=== PATIENT | female | born 1990 | race Caucasian/White ===

== ENCOUNTER 2022-10-05 13:44 | Inpatient (IN) | payer OTHER ==
[~2022-10-05] VITALS: Ht 162.6 cm; Wt 74.1 kg
[2022-10-06] VITALS (17 sets, daily range): BP systolic 91–135; BP diastolic 48–78; PULSE 63–88; TEMP 97.3–98.2
--- NOTE | 2022-10-06 06:05 | NUR ---
In waiting room. States "I'm here for a C/S" Ambulatory to room 221.
[2022-10-06] MEDS ORDERED: PRENATAL (06:42)
[2022-10-06] MEDS ORDERED: EZFE 200200 MG PO (06:43)
[2022-10-06] MEDS ORDERED: ZYRTEC 10MG10 MG PO (06:43)
[2022-10-06 07:49] LABS: BASO % 0.3 % (0.0-2.0); EOS # 0.1 K/mm3 (0.0-0.7); EOS % 2.4 % (0.0-4.0); GRAN # 2.2 K/mm3 (1.4-6.5); GRAN % 73.6 % (42.2-75.2); LYMPH # 0.5 K/mm3 (1.2-3.4); LYMPH % 17.3 % (20.0-51.0); MEAN CELL VOLUME 89 fl (80.0-100.0); MEAN CORPUSCULAR HGB CONC 36 g/dl (33.0-37.0); MEAN PLATELET VOLUME 11.5 fl (7.4-10.4); MONO # 0.2 K/mm3 (0.1-0.6); MONO % 5.4 % (1.7-9.3); PLATELET COUNT 52 K/mm3 (130-400); RED BLOOD COUNT 7.03 M/mm3 (4.10-5.30); REDCELL DISTRIBUTION WIDTH-CV 14.1 % (11.5-14.5)
[2022-10-06 07:51] LABS: HEMATOCRIT 62.8 % (37.0-47.0); MEAN CORPUSCULAR HEMOGLOBIN 32 pg (27-31)
[2022-10-06 07:54] LABS: HEMOGLOBIN 22.4 g/dl (12.5-16.0)
[2022-10-06 12:05] LABS: BASO % 0.2 % (0.0-2.0); EOS % 0.1 % (0.0-4.0); GRAN # 12.8 K/mm3 (1.4-6.5); GRAN % 86.3 % (42.2-75.2); LYMPH # 1.3 K/mm3 (1.2-3.4); LYMPH % 9.1 % (20.0-51.0); MEAN CELL VOLUME 90 fl (80.0-100.0); MEAN CORPUSCULAR HGB CONC 36 g/dl (33.0-37.0); MEAN PLATELET VOLUME 11.7 fl (7.4-10.4); MONO # 0.6 K/mm3 (0.1-0.6); MONO % 3.8 % (1.7-9.3); REDCELL DISTRIBUTION WIDTH-CV 13.2 % (11.5-14.5)
[2022-10-06 12:07] LABS: HEMATOCRIT 34.3 % (37.0-47.0); MEAN CORPUSCULAR HEMOGLOBIN 32 pg (27-31)
[2022-10-06 12:17] LABS: HEMOGLOBIN 12.2 g/dl (12.5-16.0)
[2022-10-06 12:18] LABS: PLATELET COUNT 160 K/mm3 (130-400)
--- NOTE | 2022-10-06 12:30 | NUR ---
1216- LAB NOTIFIED RN OF CHANGE IN LAB RESULTS 1222- NOTIFIED BY RN OF LAB RESULTS, SEE PHYSICIAN NOTIFICATION. 1229- RN CALLS LAB TO TRY TO CONTACT LUTE PACKER OR APPLIER, LUTE PACKER OR APPLIER NOT IN OFFICE TODAY. 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
--- NOTE | 2022-10-06 15:50 | NUR ---
PATIENT ISNO LONGER FEELING LIKE HER LEGS ARE NUMB, RN AT BEDSIDE TO ASSIST PATIENT TO AMBULATE. PATIENT ASSISTED TO SITTING ON THE SIDE OF THE BED AND SITS THERE FOR A MINUTE. PATIENT REPORTS FEELING STEADY AND IS ASSISTED TO STANDING. PATIENT DOES NOT REPORT DIZZY OR UNSTEADY. PATIENT AMBULATES TO RESTROOM WITH RN AT SIDE, PERICARE PROVIDED AT THIS TIME. PATIENT ASSISTED INTO HER OWN CLOTHES AND AMBULATES INDEPENDENTLY TO WINDOW SEAT WITH FOOT REST. PATIENT DOES NOT REPORT DIZZINESS AND IS SOCIALIZING WITH MOTHER IN LAW.
[2022-10-07 02:10] VITALS: BP 104/61; PULSE 70; TEMP 97.5
[2022-10-07 05:45] VITALS: BP 96/58; PULSE 72; TEMP 97.5
[2022-10-07 08:15] VITALS: BP 104/61; PULSE 71; TEMP 97.7
[2022-10-07] MEDS ORDERED: IBU600 MG PO (08:59)
[2022-10-07] MEDS ORDERED: ROXICODONE 55 MG/TAB PO (08:59)
--- NOTE | 2022-10-07 09:30 | NUR ---
Initial visit; Parents thanked [employer] for offering congratulations and God's blessings for the of their son. [employer] thanked family for choosing [facility].
[2022-10-07 17:00] VITALS: BP 117/53; PULSE 69; TEMP 97.4
[2022-10-07 19:44] VITALS: BP 111/60; PULSE 72; TEMP 97.6
[2022-10-08 10:27] VITALS: BP 101/55; PULSE 74; TEMP 97.7
--- NOTE | 2022-10-08 11:45 | NUR ---
DISCHARGE INSTRUCTIONS REVIEWED WITH PT REGARDING INCISION CARE, FOLLOW-UP, PAIN MANAGEMENT AND REASONS TO CALL PHYSICIAN. QUESTIONS INVITED AND ANSWERED. PT VERBALIZES UNDERSTANDING. PT WAITING FOR SPOUSE TO ARRIVE FOR DISCHARGE HOME.
== END 2022-10-08 13:15 | disposition home or self-care (01) | DRG 788 ==
LOC: OB 10-06 05:52
PROVIDERS: ADMIT Obstetrics & Gynecology
PROC: 10D00Z1 Extraction of Products of Conception, Low, Open Approach (ICD-10-PCS; principal; 2022-10-06)
DX: O34.211 Maternal care for low transverse scar from previous cesarean delivery (principal); Z37.0 Single live birth; O99.02 Anemia complicating childbirth; D64.9 Anemia, unspecified; Z3A.39 39 weeks gestation of pregnancy
CPT/HCPCS: J0171; J0690; J1885; J2175; J2370; J2405; J2590; J7120